=== PATIENT | male | born 1975 | race Caucasian/White ===

== ENCOUNTER 2021-01-19 15:10 | Outpatient (CLI) | payer OTHER | END 2021-01-19 15:11 | disposition home or self-care (01) | LOC: CTENTCT 15:10 | PROVIDERS: ATTEND Otolaryngology Plastic Surgery within the Head & Neck | DX: J32.9 Chronic sinusitis, unspecified (principal) | CPT/HCPCS: 70486 ==

== ENCOUNTER 2021-04-06 11:55 | Outpatient (CLI) | payer OTHER ==
[2021-04-07 11:03] LABS: SARS-CoV-2 PCR by NAA Not Detected (NotDetected)
== END 2021-04-06 11:56 | disposition home or self-care (01) ==
LOC: LABBT 11:55
PROVIDERS: ATTEND Otolaryngology Plastic Surgery within the Head & Neck
DX: Z01.818 Encounter for other preprocedural examination (principal); J32.9 Chronic sinusitis, unspecified; J30.9 Allergic rhinitis, unspecified; J34.3 Hypertrophy of nasal turbinates; R09.81 Nasal congestion; R51.9 Headache, unspecified; J34.2 Deviated nasal septum; Z20.822 Contact with and (suspected) exposure to COVID-19
CPT/HCPCS: 93005; 93010; U0003; U0005

== ENCOUNTER 2021-04-08 08:29 | Day surgery (SDC) | payer OTHER ==
[2021-04-07 10:42] VITALS: BMI 24.5
[2021-04-08] MEDS ORDERED: Oxymetazoline HCl 0.05% (30 ML BOT) ONE (09:48)
[2021-04-08] MEDS ORDERED: Lidocaine 1% w/Epinephrine 1:100K 20 ML VIAL ONE (11:15)
[2021-04-08] MEDS ORDERED: AFRIN NASAL MIST 15 ML BOT ONE (11:15)
[2021-04-08] MEDS ORDERED: Fentanyl 100 MCG/2 ML VIAL ONE ×2 (11:26→12:37)
[2021-04-08] MEDS ORDERED: Lidocaine 1% PF 5 ML VIAL ONE (11:34)
[2021-04-08] MEDS ORDERED: Ondansetron PF 4 MG/2 ML Vial ONE (11:34)
[2021-04-08] MEDS ORDERED: Dexamethasone 20 MG/5 ML VIAL ONE (11:34)
[2021-04-08] MEDS ORDERED: Glycopyrrolate 0.2 MG/ML 5 ML SYRINGE ONE (11:34)
[2021-04-08] MEDS ORDERED: Rocuronium Bromide 10 MG/ML (10ML VIAL) ONE (11:34)
[2021-04-08] MEDS ORDERED: PROPOFOL 200 MG/20 ML VIAL ONE (11:34)
[2021-04-08] MEDS ORDERED: hydrALAZINE 20 MG/ML VIAL ONE (13:01)
== END 2021-04-08 13:52 | disposition home or self-care (01) ==
LOC: SDC 08:29
PROVIDERS: ATTEND Otolaryngology Plastic Surgery within the Head & Neck
PROC: 09BW8ZZ Excision of Right Sphenoid Sinus, Via Natural or Artificial Opening Endoscopic (ICD-10-PCS; principal; 2021-04-08)
PROC: 09TV8ZZ Resection of Left Ethmoid Sinus, Via Natural or Artificial Opening Endoscopic (ICD-10-PCS; principal; 2021-04-08)
PROC: 09BX8ZZ Excision of Left Sphenoid Sinus, Via Natural or Artificial Opening Endoscopic (ICD-10-PCS; principal; 2021-04-08)
PROC: 099S8ZZ Drainage of Right Frontal Sinus, Via Natural or Artificial Opening Endoscopic (ICD-10-PCS; principal; 2021-04-08)
PROC: 099T8ZZ Drainage of Left Frontal Sinus, Via Natural or Artificial Opening Endoscopic (ICD-10-PCS; principal; 2021-04-08)
PROC: 09TU8ZZ Resection of Right Ethmoid Sinus, Via Natural or Artificial Opening Endoscopic (ICD-10-PCS; principal; 2021-04-08)
PROC: 8E09XBZ Computer Assisted Procedure of Head and Neck Region (ICD-10-PCS; principal; 2021-04-08)
DX: J32.9 Chronic sinusitis, unspecified (principal); J34.3 Hypertrophy of nasal turbinates; J34.89 Other specified disorders of nose and nasal sinuses; J34.2 Deviated nasal septum; J33.8 Other polyp of sinus; J45.909 Unspecified asthma, uncomplicated; Z79.899 Other long term (current) drug therapy; Z88.5 Allergy status to narcotic agent
CPT/HCPCS: J0360; J3010